=== PATIENT | female | born 1960 | race Caucasian/White ===

== ENCOUNTER → 2016-10-14 | Outpatient (CLI) | payer OTHER ==
[~2016-10-14] MED LIST: AMBIEN PO; CELEXA PO; HYDROCHLOROTHIA25 MG PO; SIMVASTATIN20 MG PO; ZYRTEC PO; [UNRECOGNIZED DRUG - CODE]; [UNRECOGNIZED DRUG - OTHER]
--- NOTE | ~2016-10-14 | MY11 ---
[facility] A Service of [facility] RADIOLOGY TEXT RESULTS PATIENT: DE CHISHOLM LOCATION: [facility] : 58 UNIT #: [id number] AGE: [address]: Ciaran Vu MD SEX: F ORDER DR: [id number] [address] [address] [id number] O MR#: [id number] Acc #: [id number] NAME: DE CHISHOLM : 1960 SEX: F STUDY DATE/TIME: 10/14/2016 8:54 UNIT: [facility] ROOM: STUDY DESCRIPTION: MY Mammogram Screening Dig [place] Attending Physician: Ciaran Vu M.D. Referring Physician: Ciaran Vu M.D. Ordering Physician: Ciaran Vu M.D. Primary Care Physician: Ciaran Vu M.D. MEDICAL IMAGING REPORT This report is preliminary unless electronic signature is present. EXAM Digital screening mammogram, 10/14/2016 HISTORY 56-year-old woman, no risk elevation. Annual screening. COMPARISON 07/04/2011 FINDINGS Digital imaging of each breast was completed utilizing standard craniocaudal and mediolateral-oblique projections. Review and interpretation of digital mammograms include a second review in conjunction with FDA-approved CAD device. There is an overall increase in the parenchymal presentation bilaterally with a generalized fibronodular pattern in each breast. There are no breast masses and I see no asymmetry in the parenchymal presentation. There are no suspicious microcalcifications and I see no architectural disturbance. IMPRESSION Benign mammogram. One-year followup recommended. Patients over the age of 40 are entered into a reminder system with target due date for the next mammogram. A result letter will also be sent to the patient. BIRADS: 2 Benign finding Dictated by... Brady Churchill M.D. THIS IS AN ELECTRONICALLY VERIFIED REPORT [facility] A Service of [facility] RADIOLOGY TEXT RESULTS PATIENT: DE CHISHOLM LOCATION: [facility] : 58 UNIT #: [id number] AGE: [address]: Ciaran Vu MD SEX: F ORDER DR: Brady Churchill M.D. at 10/14/2016 1:15 PM BRIDGET/silva TD: 10/14/2016 10:21 JOB #: [id number] MEDICAL IMAGING REPORT Page 1 of 1
--- NOTE | ~2016-10-14 | BD1 ---
[facility] A Service of [facility] RADIOLOGY TEXT RESULTS PATIENT: DE CHISHOLM LOCATION: [facility] : 58 UNIT #: [id number] AGE: [address]: Ciaran Vu MD SEX: F ORDER DR: [id number] [address] [address] [id number] O MR#: [id number] Acc #: [id number] NAME: DE CHISHOLM : 1960 SEX: F STUDY DATE/TIME: 10/14/2016 8:46 UNIT: [facility] ROOM: STUDY DESCRIPTION: BD Dexa Bone Dens 1+ Site Attending Physician: Ciaran Vu M.D. Referring Physician: Ciaran Vu M.D. Ordering Physician: Ciaran Vu M.D. Primary Care Physician: Ciaran Vu M.D. MEDICAL IMAGING REPORT This report is preliminary unless electronic signature is present. EXAM DXA scan 10/14/2016 HISTORY Status post menopause with history of hormone replacement therapy beginning at age 44. Hysterectomy at age 44 with removal of both ovaries. Hypertension with blood pressure medication. Smoking history for 20 years. Family history of osteoporosis in mother. FINDINGS Bone mineral density in the lumbar spine from L1-L4 is 1.342 g/cm2 which is 1.3 standard deviations above the mean when compared to the young adult reference population which is within the range of normal. This is 1.6 standard deviations above the mean when compared to the age-matched population. Bone mineral density in the left femoral neck was 1.043 g/cm2 which is 0 standard deviations from the mean when compared to the young adult reference population which is within the range of normal. This is 0.7 standard deviations above the mean when compared to the age-matched population. Bone mineral density in the right femoral neck was 1.045 g/cm2 which is 0 standard deviations from mean when compared to the young adult reference population which is within the range of normal. This is 0.7 standard deviations above the mean when compared to the age-matched population. IMPRESSION Bone mineral density in the lumbar spine and the hips bilaterally within the range of normal. Dictated by... Cliffodr Cisneros M.D. [facility] A Service of [facility] RADIOLOGY TEXT RESULTS PATIENT: DE CHISHOLM LOCATION: [facility] [place] : 58 UNIT #: [id number] AGE: [address]: Ciaran Vu MD SEX: F ORDER DR: THIS IS AN ELECTRONICALLY VERIFIED REPORT Clifford Cisneros M.D. at 10/14/2016 4:35 PM KRT/breanna TD: 10/14/2016 13:33 JOB #: [id number] MEDICAL IMAGING REPORT Page 1 of 1
== END | disposition home or self-care (01) ==
LOC: SMAM 08:07
DX: Z12.31 Encounter for screening mammogram for malignant neoplasm of breast (principal); Z13.820 Encounter for screening for osteoporosis; Z78.0 Asymptomatic menopausal state; I10 Essential (primary) hypertension; Z90.710 Acquired absence of both cervix and uterus; Z87.891 Personal history of nicotine dependence
CPT/HCPCS: 77080; G0202